=== PATIENT | female | born 1990 | race Caucasian/White ===

== ENCOUNTER 2017-10-11 08:07 | Emergency (ER) | payer OTHER ==
[~2017-10-11] VITALS: Ht 170.2 cm; Wt 98.0 kg
[~2017-10-11 08:07] MED LIST: SYNTHROID50 MCG
[2017-10-11] MEDS ORDERED: SKELAXIN800 MG PO (09:13)
[2017-10-11] MEDS ORDERED: TORADOL60 MG IM (09:13)
== END 2017-10-11 11:26 | disposition home or self-care (01) ==
LOC: ER 08:07
DX: M54.41 Lumbago with sciatica, right side (principal); M54.5 Low back pain

== ENCOUNTER 2018-01-18 09:18 | Emergency (ER) | payer OTHER ==
[~2018-01-18] VITALS: Ht 175.3 cm; Wt 81.6 kg
[~2018-01-18 09:18] MED LIST changes: +SKELAXIN800 MG PO; +TORADOL60 MG IM
[2018-01-18] MEDS ORDERED: MACROBID 100 M100 MG PO (11:19)
== END 2018-01-18 12:03 | disposition home or self-care (01) ==
LOC: ER 09:18
DX: B34.9 Viral infection, unspecified (principal); R50.9 Fever, unspecified

== ENCOUNTER 2021-04-12 19:12 | Emergency (ER) | payer OTHER ==
[~2021-04-12] VITALS: Ht 170.2 cm; Wt 106.6 kg
[~2021-04-12 19:12] MED LIST changes: +MACROBID 100 M100 MG PO
[2021-04-12] MEDS ORDERED: VISTARIL25 MG PO (22:00)
== END 2021-04-12 22:10 | disposition home or self-care (01) ==
LOC: ER 19:12
DX: R07.89 Other chest pain (principal); F41.8 Other specified anxiety disorders

== ENCOUNTER 2021-05-16 12:10 | Emergency (ER) | payer OTHER ==
[~2021-05-16] VITALS: Ht 170.2 cm; Wt 106.6 kg
[~2021-05-16 12:10] MED LIST changes: +VISTARIL25 MG PO
== END 2021-05-16 13:07 | disposition home or self-care (01) ==
LOC: ER 12:10
DX: U07.1 COVID-19 (principal); B34.9 Viral infection, unspecified